=== PATIENT | female | born 1960 | race Caucasian/White ===

== ENCOUNTER 2016-07-13 07:34 | Emergency (ER) | payer OTHER ==
[~2016-07-13] VITALS: Ht 152.4 cm; Wt 104.8 kg
[~2016-07-13 07:34] MED LIST: CLARITIN10 MG PO; DIOVAN160 MG PO; LEVAQUIN500 MG PO; LISINOPRIL30 MG PO; PEPCID20 MG PO; PREDNISONE20 MG PO
[2016-07-13 07:40] VITALS: BP 145/76
== END 2016-07-13 08:23 | disposition home or self-care (01) ==
LOC: ED 07:34
DX: J06.9 Acute upper respiratory infection, unspecified (principal); I10 Essential (primary) hypertension; K21.9 Gastro-esophageal reflux disease without esophagitis; R49.0 Dysphonia; Z88.5 Allergy status to narcotic agent; Z88.8 Allergy status to other drugs, medicaments and biological substances

== ENCOUNTER 2017-02-12 17:12 | Emergency (ER) | payer OTHER ==
[~2017-02-12] VITALS: Ht 152.4 cm; Wt 104.3 kg
[2017-02-12 17:39] VITALS: Ht 152.4 cm; Wt 104.3 kg
[2017-02-13 06:29] VITALS: BP 109/71
== END 2017-02-13 06:29 | disposition home or self-care (01) ==
LOC: ED 17:12
DX: J06.9 Acute upper respiratory infection, unspecified (principal); I10 Essential (primary) hypertension; K21.9 Gastro-esophageal reflux disease without esophagitis; Z88.6 Allergy status to analgesic agent

== ENCOUNTER 2017-03-25 17:35 | Emergency (ER) | payer OTHER ==
[~2017-03-25] VITALS: Ht 152.4 cm; Wt 105.7 kg
[2017-03-25 18:39] LABS: BASOPHIL % 0.6 % (0-2); PLATELET COUNT 313 x10^3mcL (130-400)
[2017-03-25 18:40] LABS: RED CELL DISTRIBUTION WIDTH 15.4 % (11.5-14.5)
[2017-03-25 18:51] LABS: CALCIUM 9.3 mg/dL (8.5-10.1); CARBON DIOXIDE 30.5 mmol/L (21-32); CHLORIDE SERUM 102 mmol/L (98-107); CREATININE SERUM 0.8 mg/dL (0.6-1.0); GFR1 > 60 mL/min; GLUCOSE SERUM 105 mg/dL (74-106); POTASSIUM SERUM 3.5 mmol/L (3.5-5.1); SODIUM SERUM 141 mmol/L (136-145)
[2017-03-25 18:53] LABS: ALKALINE PHOSPHATASE 71 U/L (46-116); ALT/SGPT 28 U/L (14-59); AST/SGOT 21 U/L (15-37); BILIRUBIN TOTAL 0.42 mg/dL (0.20-1.00)
[2017-03-25 19:00] LABS: TOTAL PROTEIN, SERUM 8.4 g/dL (6.4-8.2)
[2017-03-25 19:52] VITALS: BP 147/66
== END 2017-03-25 19:52 | disposition home or self-care (01) ==
LOC: ED 17:35
PROVIDERS: Emergency Medicine
DX: R51 Headache (principal); T78.3XXA Angioneurotic edema, initial encounter; I10 Essential (primary) hypertension; K21.9 Gastro-esophageal reflux disease without esophagitis; Z88.5 Allergy status to narcotic agent; Z88.8 Allergy status to other drugs, medicaments and biological substances
CPT/HCPCS: 36415; J1885; Q0163

== ENCOUNTER 2018-11-24 17:20 | Emergency (ER) | payer OTHER ==
[~2018-11-24] VITALS: Ht 152.4 cm; Wt 103.4 kg
[2018-11-24 18:02] VITALS: Ht 152.4 cm; Wt 103.4 kg
[2018-11-24 20:15] VITALS: BP 179/81
== END 2018-11-24 20:15 | disposition home or self-care (01) ==
LOC: ED 17:20
DX: N76.4 Abscess of vulva (principal); I10 Essential (primary) hypertension; K21.9 Gastro-esophageal reflux disease without esophagitis; Z90.49 Acquired absence of other specified parts of digestive tract; Z98.890 Other specified postprocedural states; Z88.1 Allergy status to other antibiotic agents; Z88.5 Allergy status to narcotic agent; Z88.8 Allergy status to other drugs, medicaments and biological substances
CPT/HCPCS: J0696; J2001

== ENCOUNTER 2018-12-08 15:21 | Emergency (ER) | payer OTHER ==
[~2018-12-08] VITALS: Ht 152.4 cm; Wt 103.9 kg
[2018-12-08 15:47] VITALS: Ht 152.4 cm; Wt 103.9 kg
[2018-12-08 18:29] VITALS: BP 140/72
== END 2018-12-08 18:29 | disposition home or self-care (01) ==
LOC: ED 15:21
DX: J40 Bronchitis, not specified as acute or chronic (principal); I10 Essential (primary) hypertension; K21.9 Gastro-esophageal reflux disease without esophagitis; Z88.1 Allergy status to other antibiotic agents; Z88.5 Allergy status to narcotic agent; Z88.8 Allergy status to other drugs, medicaments and biological substances
CPT/HCPCS: J7512; J7620